=== PATIENT | male | born 1995 | race Caucasian/White ===

== ENCOUNTER 2022-03-16 06:47 | Day surgery (SDC) | payer OTHER ==
[~2022-03-16] VITALS: Ht 177.8 cm; Wt 60.2 kg
[2022-03-16] VITALS (7 sets, daily range): BP systolic 85–120; BP diastolic 49–90
--- NOTE | 2022-03-16 06:30 | NUR ---
Patient arrived to the [facility] suite, identification and demographics confirmed. Patient to room 10, AAO and ambulatory vitals obtained, ID/allergy/fall bands placed, changed into hospital gown, procedure and timeline explained. All questions answered, patient presents no concerns at this time.
--- NOTE | 2022-03-16 07:06 | NUR ---
Dr. Mills telephoned with patient intake information including usage, dose, last dose/time taken and initial vital signs. Patient history and allergies reviewed with MD. Orders received for 10 mg PO Valium and 0.2 mg PO Clonidine now. Will reassess per protocol in 1.5 hours and update MD with assessment and vitals.
[2022-03-16 07:42] LABS: HEMATOCRIT 42.7 % (39.0-50.0); HEMOGLOBIN 14.8 g/dl (14.0-18.0); IMMATURE GRANULOCYTES 0.2 % (0.0-5.0); MEAN CELL VOLUME 94.5 fL CALC (80.0-100.0); MEAN CORPUSCULAR HGB 32.7 pG CALC (26.0-32.0); MEAN CORPUSCULAR HGB CONC 34.7 g/dL CAL (32.0-36.0); NEUT# 3.25 thou/uL (1.82-7.42); RED BLOOD COUNT 4.52 mill/uL (4.70-6.10); RED CELL DISTRI WIDTH 11.6 % (11.5-15.5)
[2022-03-16 08:07] LABS: ALBUMIN 4.2 g/dL (3.2-5.0); ALKALINE PHOSPHATASE 62 u/l (38-126); ANION GAP 12 (6-22 (CALC)); BILIRUBIN, TOTAL 1.4 mg/dL (0.0-1.4); BUN 14 mg/dL (9-20); BUN/CREATININE RATIO 18 (12-20 (CALC)); CARBON DIOXIDE 29 mmol/l (22-30); CHLORIDE 101 mmol/l (95-108); CREATININE 0.8 mg/dL (0.7-1.3); GFR FOR AFR.AMER. > 60 ML/MIN (>=60 (CALC)); GFR OTHER RACES > 60 ML/MIN (>=60 (CALC)); POTASSIUM 4.1 mmol/l (3.5-5.1); SGOT/AST 35 u/l (17-59); SODIUM 138 mmol/l (137-146)
--- NOTE | 2022-03-16 08:45 | NUR ---
Patient resting comfortably in bed. Easily aroused, maintains focus, and drifts back to sleep. No signs of active withdrawal or distress noted at this time.
--- NOTE | 2022-03-16 09:06 | NUR ---
Dr. Bernardo telephoned with reassessment and new vital signs. Reviewed initial Valium and Clonidine dose with MD. Orders received for 5 mg PO Valium PRN x1 for anxiety and ZERO mg PO Clonidine now. Will reassess per protocol in 1.5 hours and update MD with assessment and vitals.
--- NOTE | 2022-03-16 10:25 | NUR ---
Patient resting comfortably in bed. Easily aroused, maintains focus, and drifts back to sleep. No signs of active withdrawal or distress noted at this time. Continuous SPO2, rhythm, and respiratory monitoring initiated. IVF @ 250 mL/HR, room air, VSS.
--- NOTE | 2022-03-16 11:40 | NUR ---
Patient resting comfortably in bed. Easily aroused, maintains focus, and drifts back to sleep. No signs of active withdrawal or distress noted at this time. Remains on continuous SPO2, cardiac, and respiratory monitoring initiated. IVF @ 250 mL/HR, room air, VSS.
--- NOTE | 2022-03-16 12:40 | NUR ---
Patient remains resting in bed, now awake and increasing anxiety. Administered PRN Clonazepam given per orders.
--- NOTE | 2022-03-16 13:27 | NUR ---
Induction Note Patient to [facility] procedure room. Time out performed at 1327. Patient placed on monitors, Karen hugger, bilateral wrist restraints applied for ET tube protection. Versed 5mg given IV push at 1328 Tourniquet applied to RIGHT arm Lidocaine 100mg given at 1329 IV push followed by Rocoronium 10mg at 1329 IV push and held for 45 seconds. Propofol bolus of 110 mg given at 1331 IV push. Succinylcholine 80mg given IV push at 1332. Smooth intubation at 1330 with 7.5 ETT @ 23L. Positive CO2. Positive Auscultation for air exchange. Patient placed on ventilator for spontaneous ventilation. Placed on Propofol IV drip at 1335. OG inserted. Positive air on auscultation. Positive gastric content. Stomach washed at this time.
--- NOTE | 2022-03-16 13:45 | NUR ---
Naltrexone 50 mg given via OG tube with Clonidine ZERO mg given via OG Tube. OG clamped for 45 minutes. Will monitor patient for symptoms of withdrawal and adjust propfol accordingly.
--- NOTE | 2022-03-16 13:45 | NUR ---
OG close note Stomach washed at this time. Naltrexone 50 mg with Clonidine ZERO mg via OG tube. OG will be clamped for 45 minutes.
--- NOTE | 2022-03-16 14:30 | NUR ---
OG open note OG open at this time. Gastric content draining into drainage bag. OG to drain for 45 minutes. Propofol will be titrated down based on patient.
--- NOTE | 2022-03-16 15:20 | NUR ---
OG close note Stomach washed at this time. Naltrexone 50 mg with Clonidine ZERO mg via OG tube. OG will be clamped for 45 minutes.
[2022-03-16] MEDS ORDERED: NALTREXONE50 MG PO (16:35)
[2022-03-16] MEDS ORDERED: CLONIDINE0.1 MG PO (16:35)
[2022-03-16] MEDS ORDERED: KLONOPIN2 MG PO (16:36)
--- NOTE | 2022-03-16 16:50 | NUR ---
OG close note Stomach washed at this time. Naltrexone 25 mg with Clonidine 0.2 mg via OG tube. OG will be clamped for 45 minutes.
--- NOTE | 2022-03-16 18:28 | NUR ---
No OG close at this time. Patient still reacting to treatment. Vitals, total Naltrexone & Clonidine, treatment duration and patient assessment discussed with Dr. Mills. No orders for medication administration at this time.
--- NOTE | 2022-03-16 19:56 | NUR ---
Extubation note Closing medications given Benadryl 50mg IV push, Decadron 10mg IV push,Magnesium 4 grams IV, Zofran 8mg IV push, Octreotide 100mcg SC. Stomach washed out prior to extubation. Suctioned gastric content. OG removed. Patient extubated. Propofol Discontinued. Wrist restraints removed. Karen hugger Removed. See [facility] Moderate sedate recovery record for further notes and assessment.
--- NOTE | 2022-03-16 20:15 | NUR ---
transported to tx via stretcher in no distress, resp even and unlabored. report to Latha. VSS. JUNE.
--- NOTE | 2022-03-16 20:20 | NUR ---
PATIENT RESTING IN BED. TURNS SELF IN BED. DROWSY. TRIES TO SIT UP AT TIMES. REDIRECTED. NO SIGNS OF DISTRESS. BED REMAINS IN LOW POSITION. BED ALARM ACTIVE.
--- NOTE | 2022-03-16 23:31 | NUR ---
PATIENT REMAINS MOVING AROUND IN BED. ALERT AND ABLE TO MAKE NEEDS KNOWN BUT CONFUSES WORDS. TRIES TO GET OUT OF BED AT TIMES BY HIMSELF. REDIRECTED EACH TIME. PATIENT LAUGHS ALOT. HE APPEARS IN GOOD SPIRITS. BED REMAINS IN LOW POSITION. BED ALARM ACTIVE.
[2022-03-17 03:56] VITALS: BP 112/65
--- NOTE | 2022-03-17 04:49 | NUR ---
PATIENT RESTING IN BED. CHANGES POSITION ON HIS OWN. ALERT BUT FORGETS WHAT HES SAYING AT TIMES. NO DISTRESS OR PAIN NOTED. BED REMAINS IN LOW POSITION. CALL LIGHT IN REACH. BED ALARM ACTIVE.
[2022-03-17 05:07] LABS: HEMATOCRIT 40.3 % (39.0-50.0); HEMOGLOBIN 13.7 g/dl (14.0-18.0); IMMATURE GRANULOCYTES 0.2 % (0.0-5.0); MEAN CORPUSCULAR HGB 32.3 pG CALC (26.0-32.0); NEUT# 8.57 thou/uL (1.82-7.42); RED BLOOD COUNT 4.24 mill/uL (4.70-6.10); RED CELL DISTRI WIDTH 11.6 % (11.5-15.5)
[2022-03-17 05:08] LABS: ALBUMIN 4.2 g/dL (3.2-5.0); ALKALINE PHOSPHATASE 67 u/l (38-126); ANION GAP 11 (6-22 (CALC)); BILIRUBIN, TOTAL 1.2 mg/dL (0.0-1.4); BUN 10 mg/dL (9-20); BUN/CREATININE RATIO 13 (12-20 (CALC)); CARBON DIOXIDE 26 mmol/l (22-30); CHLORIDE 107 mmol/l (95-108); CREATININE 0.7 mg/dL (0.7-1.3); GFR FOR AFR.AMER. > 60 ML/MIN (>=60 (CALC)); GFR OTHER RACES > 60 ML/MIN (>=60 (CALC)); MAGNESIUM 2.2 mg/dL (1.6-2.3); POTASSIUM 3.8 mmol/l (3.5-5.1); SGOT/AST 32 u/l (17-59); SODIUM 140 mmol/l (137-146); TOTAL PROTEIN 6.9 g/dL (6.3-8.2)
[2022-03-17 06:48] VITALS: BP 107/68
--- NOTE | 2022-03-17 07:00 | NUR ---
REPORT RECIEVED FROM FOLDED TOWEL MACHINE OPERATOR RN. PT RESTING IN BED, BREATHING EVEN AND UNLABORED. FALL/SAFTEY PRECAUTION IN PLACE, CALL LIGHT WITHIN REACH
--- NOTE | 2022-03-17 12:30 | NUR ---
PT RESTING WTACHING TV. BREATHING EVEN AND UNLABORED. NO DISTRESS NOTED. FALL/SAFTEY PRECAUTION IN PLACE. CALL LIGHT WITHIN REACH
[2022-03-17 12:45] VITALS: BP 107/68
--- NOTE | 2022-03-17 14:07 | NUR ---
Discharge instructions given. Patient verbalizes understanding of same. Discharged in stable condition via Wheelchair to Home with [facility] staff. All belongings sent with pt.
== END 2022-03-17 14:07 | disposition home or self-care (01) | DRG 897 ==
LOC: ANR 06:47 → ANR-I 06:47 → MS2 18:49 → ANR 03-17 14:07
PROVIDERS: ATTEND Anesthesiology
DX: F11.20 Opioid dependence, uncomplicated (principal)
CPT/HCPCS: J1100; J2354